=== PATIENT | male | born 1950 | race Caucasian/White ===

== ENCOUNTER 2017-03-27 17:12 | Emergency (ER) | payer MEDICARE ==
[2017-03-27 18:43] LABS: HEMOGLOBIN 14.8 gm/dl (14.0-17.5); RED BLOOD COUNT 4.95 M/UL (4.20-5.50); WHITE BLOOD COUNT 6.9 K/UL (4.5-11.0)
== END 2017-03-27 22:50 | disposition home or self-care (01) ==
LOC: ER1 17:12
PROVIDERS: Family Medicine
DX: R07.9 Chest pain, unspecified (principal); M54.6 Pain in thoracic spine; E11.9 Type 2 diabetes mellitus without complications; I10 Essential (primary) hypertension; Z90.49 Acquired absence of other specified parts of digestive tract; Z79.84 Long term (current) use of oral hypoglycemic drugs; Z79.899 Other long term (current) drug therapy
CPT/HCPCS: 36415; 71020; 80053; 82550; 82553; 83874; 84484; 85025; 93005; 99283

== ENCOUNTER → 2020-07-31 | Outpatient (CLI) | payer MEDICARE, OTHER ==
[~2020-07-31] MED LIST: AUGMENTIN 875-1 EACH PO; CLONAZEPAM1 MG PO; CYCLOBENZAPRINE10 MG PO; FLOMAX 0.4 MG0.4 MG PO; GLUCOPHAGE1000 MG PO; IBUPROFEN800 MG PO; JANUVIA100 MG PO; LAMOTRIGINE100 MG PO; LOPID600 MG PO; LOPRESSOR 50 MG50 MG PO; NORCO 5-325 TA1 EACH PO; NORCO 7.5-3251 EACH PO; NORTRIPTYLINE H25 MG PO; OMEPRAZOLE20 M2 PO; ONDANSETRON ODT4 MG SL; SIMVASTATIN20 MG PO; TRAZODONE HCL100 MG PO; ZOFRAN4 MG PO
== END ==
LOC: KOH-I 08:15
DX: M47.22 Other spondylosis with radiculopathy, cervical region (principal); M50.122 Cervical disc disorder at C5-C6 level with radiculopathy
CPT/HCPCS: 72141

== ENCOUNTER → 2020-10-15 | Outpatient (CLI) | payer MEDICARE, OTHER | LOC: KOH-I 10:22 | DX: M54.5 Low back pain (principal); M51.36 Other intervertebral disc degeneration, lumbar region; N20.0 Calculus of kidney | CPT/HCPCS: 72110 ==

== ENCOUNTER 2020-12-13 14:50 | Emergency (ER) | payer OTHER, MEDICARE ==
[~2020-12-13 14:50] MED LIST changes: -CYCLOBENZAPRINE10 MG PO; -IBUPROFEN800 MG PO
[2020-12-13] MEDS ORDERED: CYCLOBENZAPRINE10 MG PO (16:41)
[2020-12-13] MEDS ORDERED: IBUPROFEN800 MG PO (16:41)
== END 2020-12-13 17:12 | disposition home or self-care (01) ==
LOC: ER1 14:50
DX: S16.1XXA Strain of muscle, fascia and tendon at neck level, initial encounter (principal); I10 Essential (primary) hypertension; E11.9 Type 2 diabetes mellitus without complications; Z87.442 Personal history of urinary calculi; F17.210 Nicotine dependence, cigarettes, uncomplicated; V49.40XA Driver injured in collision with unspecified motor vehicles in traffic accident, initial encounter; Y92.410 Unspecified street and highway as the place of occurrence of the external cause
CPT/HCPCS: 72125; 99283